=== PATIENT | female | born 1975 | race Caucasian/White ===

== ENCOUNTER → 2016-07-11 | Outpatient (CLI) | payer BC ==
--- NOTE | 2016-07-14 10:52 | MM ---
Reason for exam: follow-up at short interval from prior study. Last mammogram was performed 6 months ago. History: Family history of breast cancer in maternal grandmother at age 40. Physical Findings: Nurse did not find any significant physical abnormalities on exam. MG Diagnostic Mammo RT w CAD CC and MLO view(s) were taken of the right breast. Prior study comparison: January 01, 2016, bilateral MG screening mammo w CAD. The breast tissue is heterogeneously dense. This may lower the sensitivity of mammography. There is stable chronic nodularity in the right breast. There is no discrete abnormality. These results were verbally communicated with the patient and result sheet given to the patient on 07/11/16. ASSESSMENT: Benign, BI-RAD 2 RECOMMENDATION: Return to routine screening mammogram schedule for both breasts. Back on schedule December 2016.
--- NOTE | 2016-07-14 10:54 | USB ---
Reason for exam: follow-up at short interval from prior study. History: Family history of breast cancer in maternal grandmother at age 40. US Breast RT Right breast ultrasound includes all four quadrants, the retroareolar region and axilla. Finding demonstrate a 0.8 x 0.4 x 0.7cm oval, solid probable nodeat 10 o'clock, stable. These results were verbally communicated with the patient and result sheet given to the patient on 07/11/16. ASSESSMENT: Benign, BI-RAD 2 RECOMMENDATION: Return to routine screening mammogram schedule for both breasts. Back on schedule December 2016.
== END | disposition home or self-care (01) ==
LOC: RADMAMWWP 13:46
PROVIDERS: ATTEND Obstetrics & Gynecology
DX: R92.8 Other abnormal and inconclusive findings on diagnostic imaging of breast (principal)
CPT/HCPCS: 76641; G0206

== ENCOUNTER → 2019-03-21 | Outpatient (CLI) | payer BC ==
--- NOTE | 2019-03-22 10:42 | MM ---
Reason for exam: screening (asymptomatic). Last mammogram was performed 2 years and 8 months ago. History: Family history of breast cancer in maternal grandmother at age 40. Physical Findings: A clinical breast exam by your physician is recommended on an annual basis and results should be correlated with mammographic findings. MG Screening Mammo w CAD Bilateral CC and MLO view(s) were taken. Prior study comparison: July 11, 2016, right breast MG diagnostic mammo RT w CAD. January 01, 2016, bilateral MG screening mammo w CAD. The breast tissue is heterogeneously dense. This may lower the sensitivity of mammography. There is chronic nodularity in the right breast. There is no discrete abnormality. ASSESSMENT: Benign, BI-RAD 2 RECOMMENDATION: Routine screening mammogram of both breasts in 1 year.
== END | disposition home or self-care (01) ==
LOC: RADMAMWWP 11:12
PROVIDERS: ATTEND Obstetrics & Gynecology
DX: Z12.31 Encounter for screening mammogram for malignant neoplasm of breast (principal); Z80.3 Family history of malignant neoplasm of breast
CPT/HCPCS: 77067

== ENCOUNTER → 2021-12-29 | Outpatient (CLI) | payer BC ==
[2021-12-29 18:13] LABS: HCT 39.7 % (37.2-46.3); MCH 28.1 pg (27.0-32.0); MCHC 32.7 g/dL (32.0-37.0); MCV 85.9 fL (80.0-97.0); Mean Platelet Volume 8.4 fL (9.5-12.2); NRBC Per 100 WBC 0 /100 WBCS (0.0-0.0); Platelet Count 361 X 10*3/uL (140-440); RBC 4.62 X 10*6/uL (4.10-5.20); RDW 12.8 % (11.5-14.5); WBC 7.37 X 10*3/uL (4.50-10.00)
== END | disposition home or self-care (01) ==
LOC: LABWHC1 11:18
PROVIDERS: ATTEND Obstetrics & Gynecology
DX: R19.09 Other intra-abdominal and pelvic swelling, mass and lump (principal)
CPT/HCPCS: 36415; 83001; 85027

== ENCOUNTER → 2022-06-24 | Outpatient (CLI) | payer BC ==
--- NOTE | 2022-06-27 08:52 | MM ---
Reason for Exam: Screening (asymptomatic). Last mammogram was performed 3 year(s) and 3 month(s) ago. Patient History: Menarche at age 11. First Full-Term at age 20. Left ovary removed at age 46. Hysterectomy at age 46. Patient has history of breast feeding. Maternal grandmother had breast cancer, age 40. Last menstrual period: 03/02/2022 Risk Values: Aurelia 5 year model risk: 0.8%. NCI Lifetime model risk: 8.3%. Prior Study Comparison: 01/01/2016 Bilateral Screening Mammogram, [facility]. 07/11/2016 Right Diagnostic Mammogram, [facility]. 03/21/2019 Bilateral Screening Mammogram, [facility]. Tissue Density: The breast tissue is heterogeneously dense. This may lower the sensitivity of mammography. Findings: Analyzed By CAD. There is no suspicious group of microcalcifications or new suspicious mass in either breast. Chronic nodularity within the right breast. Overall Assessment: Benign, BI-RAD 2 Management: Screening Mammogram of both breasts in 1 year. A clinical breast exam by your physician is recommended on an annual basis and results should be correlated with mammographic findings. Electronically signed and approved by: Rivas French D.O.
== END | disposition home or self-care (01) ==
LOC: RADMAMWWP 11:10
PROVIDERS: ATTEND Obstetrics & Gynecology
DX: Z12.31 Encounter for screening mammogram for malignant neoplasm of breast (principal); Z80.3 Family history of malignant neoplasm of breast
CPT/HCPCS: 77063; 77067

== ENCOUNTER → 2022-06-27 | Outpatient (CLI) | payer BC ==
[2022-06-27 15:48] LABS: Basophils # (A) 0.01 X 10*3/uL (0.00-0.10); Basophils % (A) 0.2 %; Eosinophils # (A) 0.23 X 10*3/uL (0.04-0.35); Eosinophils % (A) 3.8 %; HCT 41.3 % (37.2-46.3); HGB 13.4 g/dL (12.0-15.0); Immature Grans, Automated 0.2 %; Lymphocytes # (A) 1.61 X 10*3/uL (0.90-5.00); Lymphocytes % (A) 26.4 %; MCH 28.1 pg (27.0-32.0); MCHC 32.4 g/dL (32.0-37.0); MCV 86.6 fL (80.0-97.0); Mean Platelet Volume 8.6 fL (9.5-12.2); Monocytes # (A) 0.42 X 10*3/uL (0.20-1.00); Monocytes % (A) 6.9 %; NRBC Per 100 WBC 0 /100 WBCS (0.0-0.0); Neutrophils # (A) 3.83 X 10*3/uL (1.80-7.70); Neutrophils % (A) 62.5 %; Platelet Count 303 X 10*3/uL (140-440); RBC 4.77 X 10*6/uL (4.10-5.20); WBC 6.11 X 10*3/uL (4.50-10.00)
[2022-06-27 17:04] LABS: ALT 17 U/L (8-44); AST 16 U/L (13-35); African American GFR (CKD) 110.7 (60.0-200.0); Albumin 4.4 g/dL (3.8-4.9); Albumin/Globulin Ratio 1.71 (1.60-3.17); Alkaline Phosphatase 85 U/L (41-126); BUN/Creat Ratio 17.52 Ratio (12.00-20.00); Calcium 9.5 mg/dL (8.7-10.3); Carbon Dioxide 24.8 mmol/L (20.0-27.5); Chloride 107 mmol/L (96-109); Globulin 2.6 g/dL (1.6-3.3); Glucose 92 mg/dL (70-110); LDL Cholesterol,Calculated 108.3 mg/dL (0.0-131.0); Non-African American GFR(CKD) 95.5 (60.0-200.0); Potassium 4.2 mmol/L (3.5-5.5); Sodium 142 mmol/L (135-145); VLDL Calculation 12.64 mg/dL (5.00-40.00)
== END | disposition home or self-care (01) ==
LOC: LABWHC1 09:59
PROVIDERS: ATTEND Family Medicine
DX: Z00.00 Encounter for general adult medical examination without abnormal findings (principal)
CPT/HCPCS: 36415; 80053; 80061; 83036; 85025

== ENCOUNTER → 2023-06-26 | Outpatient (CLI) | payer BC ==
--- NOTE | 2023-06-28 09:57 | MM ---
Reason for Exam: Screening (asymptomatic). Last screening mammogram was performed 12 month(s) ago. Patient History: Menarche at age 11. First Full-Term at age 20. Left ovary removed at age 46. Hysterectomy at age 46. Patient has history of breast feeding. Maternal grandmother had breast cancer, age 40. Risk Values: Aurelia 5 year model risk: 0.8%. NCI Lifetime model risk: 8.2%. Prior Study Comparison: 07/11/2016 Right Diagnostic Mammogram, [facility]. 03/21/2019 Bilateral Screening Mammogram, [facility]. 06/24/2022 Bilateral MG 3D screening mammo w/cad, [facility]. Tissue Density: There are scattered areas of fibroglandular density. Findings: Analyzed By CAD. Right breast: There is no suspicious group of microcalcifications or new suspicious mass. Left breast: There is no suspicious group of microcalcifications or new suspicious mass. Overall Assessment: Negative, BI-RAD 1 Management: Screening Mammogram of both breasts in [address] [facility] will attempt to contact patient to return for supplemental views and ultrasound if indicated. Patient should continue monthly self-breast exams. A clinical breast exam by your physician is recommended on an annual basis. This exam should not preclude additional follow-up of suspicious palpable abnormalities. Note on Aurelia scores and lifetime risk: 1. A Aurelia score greater than 3% is considered moderate risk. If this is the case, consider specialist referral to assess eligibility for a risk reducing agent. 2. If overall lifetime risk for the development of breast cancer is 20% or higher, the patient may qualify for future screening with alternating mammogram and breast MRI. Electronically signed and approved by: Moise Flores DO
== END | disposition home or self-care (01) ==
LOC: RADMAMWWP 11:27
PROVIDERS: ATTEND Obstetrics & Gynecology
DX: Z12.31 Encounter for screening mammogram for malignant neoplasm of breast (principal); Z80.3 Family history of malignant neoplasm of breast
CPT/HCPCS: 77063; 77067